=== PATIENT | female | born 1995 | race Caucasian/White ===

== ENCOUNTER 2022-07-21 14:50 | Emergency (ER) | payer BC, SELFPAY ==
[2022-07-21 15:15] VITALS: BP 130/82; PULSE 91; RESP 18; TEMP 36.9; O2SAT 98
--- NOTE | 2022-07-21 15:27 | ED.UPPEXIN ---
HPI - Extremity Injury (Upper) General Time Seen by Provider: 15:27 Date Seen: 07/21/22 Chief Complaint: Extremity Pain/Injury, Upper Stated Complaint: Hand Injury Time Seen by Provider: 07/21/22 14:56 Source: patient and RN notes reviewed Mode of arrival: ambulatory Limitations: no limitations History of Present Illness HPI narrative: This 27-year-old female is coming in with right hand pain. It hurts primarily in her right 3rd finger, goes down into her hand along the 4th and 5th metacarpal area. Now she is getting pain radiating into the forearm. Injury happened night. They were cleaning out the garage, she states she had liquid courage, i.e. alcohol use, and could not get a metal locker functioning. She hit with her fist a few times thinking she would get it open. Since then the fingers become more swollen and painful, right 3rd finger, hand hurts. It hurts to use her hand, does feel like the right 3rd finger is numb and tingly but it is swollen. She has been trying to ice, elevate, Tylenol and ibuprofen for pain management. She has decided to come in for evaluation, get x-rays. Related Data Home Medications Medication Instructions Recorded Confirmed No Known Home Medications 07/21/22 07/21/22 Allergies Allergy/AdvReac Type Severity Reaction Status Date / Time No Known Drug Allergies Allergy Verified 07/21/22 15:20 Review of Systems Narrative: As per HPI Exam Const: Vital Signs, click to edit/add: Vital Signs - 24 hr 07/21/22 15:15 Temperature 98.4 F Pulse Rate [Femora l] 91 Respiratory Rate 18 Blood Pressure [Le ft Upper Arm] 130/82 Pulse Oximetry 98 Oxygen Delivery Me thod Room Air Documenting provider has reviewed patient's vital signs: yes Common normals: no apparent distress, average body habitus, oriented x3, no limitations, healthy appearing, alert and well nourished Other: This 27-year-old female is ambulatory into the ED of her own accord. Her right 3rd finger is definitely swollen, no ecchymosis noted. She has normal cap refill, states she does not feel the finger but complains of pain when I IM manipulating or touching it at all. Pain extends into this metacarpophalangeal joint, goes into the metacarpals along the 3rd 4th and 5th distal metacarpals. Has normal light touch sensation through all other digits. No pain along the wrist or radius or ulna distally. No open wounds noted. Complains of pain with minimal range of motion, will await x-ray before I attempt further mobilization. Neuro: Common normals: oriented x3 Sensorium/orientation: alert Course Course Hospital Course: Reviewed with patient that we will be getting an x-ray of her right hand, she does agree. Reevaluation(s) Reevaluation #1: Reviewed with patient negative xrays. Put on large baseball splint, felt comfort. Time: 16:29 Vital Signs Vital signs: Initial Vital Signs Temperature 98.4 F 07/21/22 15:15 Temperature Source Temporal Artery Scan 07/21/22 15:15 Pulse Rate 91 07/21/22 15:15 Pulse Rhythm 07/21/22 15:15 Respiratory Rate 18 07/21/22 15:15 Blood Pressure 130/82 07/21/22 15:15 Blood Pressure Mean 98 07/21/22 15:15 Blood Pressure Position Sitting 07/21/22 15:15 Pulse Oximetry 98 07/21/22 15:15 Oxygen Delivery Method 07/21/22 15:15 Vital Signs Temperature 98.4 F 07/21/22 15:15 Pulse Rate 91 07/21/22 15:15 Respiratory Rate 18 07/21/22 15:15 Blood Pressure 130/82 07/21/22 15:15 Pulse Oximetry 98 07/21/22 15:15 Oxygen Delivery Method 07/21/22 15:15 Temperature 98.4 F 07/21/22 15:15 Pulse Rate 91 07/21/22 15:15 Respiratory Rate 18 07/21/22 15:15 Blood Pressure 130/82 07/21/22 15:15 Pulse Oximetry 98 07/21/22 15:15 Oxygen Delivery Method 07/21/22 15:15 MDM - Extremity Injury (Upper) Imaging Data X-ray right hand: Attestation: I have reviewed the pertinent imaging results. My impression: No acute fracture on my preliminary read. Radiologist's impression: Patient: MARIE DEAN Facility:?[facility] Patient ID:?[id number] Site Patient ID:?[id number]. Site :?[id number] Study:?XRay Extremity Right HAND 3V-07/21/2022 3:41:38 PM Ordering Physician:Gareth Ruiz Final Report: INDICATION: Right hand pain, trauma TECHNIQUE: X-ray right hand, three views COMPARISON: None FINDINGS: The distal shavonne of the fingers are limited due to patient positioning. The alignment is normal. No acute fractures visualized. The overlying soft tissues unremarkable. No radiopaque foreign body is seen. IMPRESSION: Negative for acute fracture or dislocation. Dictated by Rocio Osborn MD @ 07/21/2022 4:10:19 PM Dictated by: Rocio Osborn MD @ 07/21/2022 16:10:29 (Electronic Signature) Critical Care Time Critical Care Time Critical Care Time: No Discharge Plan Discharge Clinical Impression: Jammed interphalangeal joint of finger of right hand Patient Disposition: Home, Self-Care Condition: Stable Instructions: Finger Sprain (ED) Additional Instructions: Use splint as needed for comfort. Continue icing and elevating, Tylenol/ibuprofen per bottle as needed for discomfort. If not improving in the next 7-10 days, worsening at any point, need to seek re-evaluation and consider re-imaging. Activity Level: Activity as Tolerated Prescriptions: No Action No Known Home Medications Stand Alone Forms: [employer] Info Instructions
--- NOTE | 2022-07-21 15:31 | CRLHL7_ITS ---
For Patients: As a result of the Cures Act, medical imaging exams and procedure reports are released immediately into your electronic medical record. You may view this report before your referring provider. If you have questions, please contact your health care provider. INDICATION: Right hand pain, trauma TECHNIQUE: X-ray right hand, three views COMPARISON: None FINDINGS: The distal shavonne of the fingers are limited due to patient positioning. The alignment is normal. No acute fractures visualized. The overlying soft tissues unremarkable. No radiopaque foreign body is seen. IMPRESSION: Negative for acute fracture or dislocation. Dictated by Rocio Osborn MD @ 07/21/2022 4:10:19 PM Dictated by: Rocio Osborn MD @ 07/21/2022 16:10:29 (Electronically Signed)
--- NOTE | 2022-07-21 16:40 | ED.NURSE ---
Finger splint applied by . Pt reports improvement in pain with this.
[2022-07-21 16:49] VITALS: BP 130/82; PULSE 91; RESP 18; TEMP 36.9
== END 2022-07-21 16:50 | disposition home or self-care (01) ==
PROVIDERS: Emergency Provider Family Medicine
DX: S63.632A Sprain of interphalangeal joint of right middle finger, initial encounter (principal); W22.8XXA Striking against or struck by other objects, initial encounter
CPT/HCPCS: 29125; 73130; 99283